=== PATIENT | male | born 1945 | race Two or more races ===

== ENCOUNTER 2016-12-28 21:52 | Inpatient (IN) | payer OTHER ==
[~2016-12-28] VITALS: Ht 165.1 cm; Wt 99.0 kg
[~2016-12-28 21:52] MED LIST: ALBUAER3 IN; ATOR40TA52 PO; CLOP75TA41 PO; ENO40SY SUBCUT; FENO54TA4 PO; FURO20TA3 PO; GABA-497 PO; INSUINJ37 SC; LISI40TA PO; METO25TA62 PO; POTA10TA51 PO; TAMS0.4C36 PO
[2016-12-28 22:32] LABS: Basophils # (auto) 0 uL; Basophils % (auto) 0.3 % (0.0-2.0); CONDITION Y; Eosinophils # (auto) 0.1 uL; Eosinophils % (auto) 0.7 % (0.0-7.0); Hematocrit 47.1 % (41.0-53.0); Hemoglobin 15.6 g/dL (13.5-17.5); Lymphocytes # (auto) 1.7 uL; Lymphocytes % (auto) 11.5 % (10.0-50.0); Mean Corpuscular Hemoglobin 27.1 pg (28.0-32.0); Mean Corpuscular Volume 81.9 fL (80.0-100.0); Mean Platelet Volume 9.3 fL (7.4-10.4); Monocytes # (auto) 0.1 uL; Monocytes % (auto) 0.9 % (0.0-12.0); Neutrophils # (auto) 12.4 uL; Neutrophils % (auto) 86.6 % (37.0-80.0); Platelet Count (auto) 266 10^3/uL (140-450); Red Cell Distribution Width 15.9 % (11.6-16.0); White Blood Cell 14.4 10^3/uL (4.4-10.8)
[2016-12-28 22:44] LABS: Albumin 2.8 g/dL (3.4-5.0); Anion Gap 10 (5-15); Aspartate Aminotransferase 21 U/L (15-37); BUN/Creatinine Ratio 9.9; Blood Urea Nitrogen 14 mg/dL (7-18); Calcium 8.2 mg/dL (8.5-10.1); Carbon Dioxide 24 mmol/L (21-32); Chloride 105 mmol/L (98-107); GFR African American 64 mL/min; GFR Non-African American 53 mL/min; Glucose 171 mg/dL (74-106); Potassium 4.3 mmol/L (3.5-5.1); Sodium 139 mmol/L (136-145)
[2016-12-28 22:50] LABS: Alkaline Phosphatase 89 U/L (45-117); Total Protein 7.5 g/dL (6.4-8.2)
[2016-12-28 22:52] LABS: Lactic Acid w/Reflex 3.6 mmol/L (0.4-2.0)
[2016-12-28] MEDS ORDERED: SODIUM CHLORIDE 0.9% 1,000 ML IV ONE (23:15)
[2016-12-28 23:20] LABS: REFLEX LACTIC ACID YES OR NO YES
[2016-12-29] VITALS (44 sets, daily range): BP systolic 97–128; BP diastolic 37–82
[2016-12-29 01:19] LABS: Allen Test Yes; Blood 02Sat 96.3 % (96-100); Blood COHb 0.6 % (0.5-1.5); Blood MetHb 0.4 % (0.0-1.5); HCO3 18.8 mmol/L (22-26.0); HHb 3.7 % (0.0-5.0); MODE MASK - BIPAP; O2Hb 95.3 % (94.0-97.0); PCO2 35.3 mmHg (35.0-45.0); PCO2(T) 35.3 mmHg (35.0-45.0); PO2 97.6 mmHg (80.0-100.0); PO2(T) 97.6 mmHg (80.0-100.0); Sample Type Arterial; pH 7.344 (7.350-7.450)
[2016-12-29] MEDS ORDERED: IOHEXOL 350 MG/ML 100ML IJ ONE (01:48)
[2016-12-29] MEDS ORDERED: FUROSEMIDE 20 MG/2 ML VIAL IV ONE ×2 (02:15→05:30)
[2016-12-29] MEDS ORDERED: IPRATROPIUM BROM 0.5 MG/2.5ML INH SOL NEB PRN (05:45)
[2016-12-29] MEDS ORDERED: ALBUMIN 25% 50 ML IV ONE (05:45)
[2016-12-29] MEDS ORDERED: MORPHINE SULF INJ 2 MG/ML SYRINGE 1ML IV PRN (05:45)
[2016-12-29] MEDS ORDERED: ACETAMINOPHEN 325 MG TAB PO PRN (05:45)
[2016-12-29] MEDS ORDERED: ALBUTEROL SULF 2.5 MG/0.5ML(0.5%) NEB SOLN NEB PRN (05:45)
[2016-12-29] MEDS ORDERED: ONDANSETRON HCL 4 MG/2 ML VIAL IV PRN (05:45)
[2016-12-29] MEDS ORDERED: DEXTROSE (50%) 50ML SYRG IV PRN (05:45)
[2016-12-29] MEDS ORDERED: NITROGLYCERIN 0.4 MG SL TAB SL PRN (05:45)
[2016-12-29] MEDS ORDERED: HYDROcodone-ACET 5/325MG TAB PO PRN (05:45)
[2016-12-29] MEDS: InsuLIN REG 1unit/0.01ml Soln (100units/ml) SC SCH ×4 (06:00→23:52)
[2016-12-29] MEDS: ACCU-CHEK COMFORT CURVE STRIP VI SCH ×4 (06:00→23:52)
[2016-12-29] MEDS: LEVOFLOXACIN 750MG 150 ML IV SCH (06:28)
[2016-12-29 08:41] LABS: Albumin 2.5 g/dL (3.4-5.0); BUN/Creatinine Ratio 10.1; Bilirubin, Total 1.2 mg/dL (0.2-1.0); Calcium 8.1 mg/dL (8.5-10.1); Magnesium 1.9 mg/dL (1.6-2.6); Potassium 4.5 mmol/L (3.5-5.1); Total Protein 6.3 g/dL (6.4-8.2)
[2016-12-29] MEDS: METOPROLOL SUCCINATE XL 50 MG TAB PO SCH (09:46)
[2016-12-29] MEDS: PANTOPRAZOLE 40 MG TAB PO SCH (09:46)
[2016-12-29] MEDS: ASPirin 81 mg TAB PO SCH (09:46)
[2016-12-29] MEDS: CLOPIDOGREL BISULFATE 75 MG TAB PO SCH (09:46)
[2016-12-29] MEDS ORDERED: PANTOPRAZOLE SODIUM 40 MG/10 ML VIAL IV SCH (10:00)
[2016-12-29] MEDS ORDERED: METOPROLOL SUCCINATE XL 50 MG TAB PO SCH (10:00)
[2016-12-29] MEDS ORDERED: ENOXAPARIN SOD 40 MG/0.4 ML SYRINGE SC SCH (10:00)
[2016-12-29] MEDS ORDERED: ENOXAPARIN SOD 30 MG/0.3 ML SYRINGE SC SCH (10:00)
[2016-12-29 10:11] LABS: CONDITION Y; Mean Corpuscular Hemoglobin 27.3 pg (28.0-32.0); Mean Corpuscular Hgb Conc. 33.3 g/dL (32.0-36.0); Mean Corpuscular Volume 81.8 fL (80.0-100.0); Mean Platelet Volume 8.7 fL (7.4-10.4); Platelet Count (auto) 213 10^3/uL (140-450); Red Cell Distribution Width 15.8 % (11.6-16.0); SUSPECT SEE PRINTOUT
[2016-12-29 10:15] LABS: Metamyelocytes % 0; Myelocytes % 0; Promyelocytes % 0; Reactive Lymphocytes 0
[2016-12-29 10:34] LABS: Lactic Acid w/Reflex 4.2 mmol/L (0.4-2.0)
[2016-12-29 11:01] LABS: REFLEX LACTIC ACID YES OR NO YES
[2016-12-29] MEDS: MAGNESIUM SULFATE 1GM/100ML 100 ML IV SCH ×2 (13:00→14:00)
[2016-12-29 15:12] LABS: Platelet Estimate Adequate
[2016-12-29] MEDS ORDERED: CYANOCOBALAMIN (B-12) 1000 MCG/1 ML VIAL SUBCUT ONE (17:45)
[2016-12-29] MEDS ORDERED: MAGNESIUM SULFATE 1GM/100ML 100 ML IV ONE (17:51)
[2016-12-29] MEDS: FUROSEMIDE 20 MG TAB PO SCH (18:24)
[2016-12-30] VITALS: BP 135/83
[2016-12-30 03:57] LABS: Basophils # (auto) 0 uL; CONDITION Y; Eosinophils # (auto) 0.3 uL; Eosinophils % (auto) 1.4 % (0.0-7.0); Hematocrit 41.9 % (41.0-53.0); Hemoglobin 14.1 g/dL (13.5-17.5); Lymphocytes # (auto) 1.5 uL; Lymphocytes % (auto) 6.9 % (10.0-50.0); Mean Corpuscular Hemoglobin 27.6 pg (28.0-32.0); Mean Corpuscular Hgb Conc. 33.6 g/dL (32.0-36.0); Mean Platelet Volume 9.1 fL (7.4-10.4); Monocytes # (auto) 0.6 uL; Neutrophils # (auto) 18.7 uL; Neutrophils % (auto) 88.7 % (37.0-80.0); Platelet Count (auto) 237 10^3/uL (140-450); Red Cell Distribution Width 15.9 % (11.6-16.0); White Blood Cell 21.1 10^3/uL (4.4-10.8)
[2016-12-30 04:00] VITALS: BP 127/74
[2016-12-30 04:10] LABS: Albumin 2.4 g/dL (3.4-5.0); Calcium 8.1 mg/dL (8.5-10.1); Magnesium 2.2 mg/dL (1.6-2.6); Potassium 3.9 mmol/L (3.5-5.1)
[2016-12-30 04:14] LABS: BUN/Creatinine Ratio 13.7; Bilirubin, Total 0.9 mg/dL (0.2-1.0); Total Protein 6.6 g/dL (6.4-8.2)
[2016-12-30] MEDS: ACCU-CHEK COMFORT CURVE STRIP VI SCH (06:34)
[2016-12-30] MEDS: LEVOFLOXACIN 750MG 150 ML IV SCH (06:34)
[2016-12-30] MEDS: FUROSEMIDE 20 MG TAB PO SCH (06:34)
[2016-12-30] MEDS: InsuLIN REG 1unit/0.01ml Soln (100units/ml) SC SCH (06:35)
[2016-12-30 08:00] VITALS: BP 126/74
[2016-12-30] MEDS ORDERED: ENOXAPARIN SOD 40 MG/0.4 ML SYRINGE SC SCH (10:00)
[2016-12-30] MEDS: PANTOPRAZOLE 40 MG TAB PO SCH (10:16)
[2016-12-30] MEDS: CLOPIDOGREL BISULFATE 75 MG TAB PO SCH (10:16)
[2016-12-30] MEDS: ASPirin 81 mg TAB PO SCH (10:16)
[2016-12-30] MEDS: METOPROLOL SUCCINATE XL 50 MG TAB PO SCH (10:17)
[2016-12-30 12:00] VITALS: BP 137/66
[2016-12-30 14:44] VITALS: BP 137/66
[2017-01-01] MEDS ORDERED: MECL12.554 PO (07:13)
[2017-01-01] MEDS ORDERED: DULO60CA PO (07:13)
[2017-01-01] MEDS ORDERED: GABA400C PO (07:13)
[2017-01-02] MEDS ORDERED: INSU70IN3 SC (13:22)
== END 2016-12-30 19:25 | disposition home or self-care (01) | DRG 871 ==
LOC: EDBD 21:52 → ER 21:54 → TELE 21:55 → ICU WEST 12-29 08:25
PROVIDERS: ADMIT Nurse Practitioner; ATTEND Family Medicine
PROC: 5A09357 Assistance with Respiratory Ventilation, Less than 24 Consecutive Hours, Continuous Positive Airway Pressure (ICD-10-PCS; principal; 2016-12-28)
DX: A41.9 Sepsis, unspecified organism (principal); J18.1 Lobar pneumonia, unspecified organism; I50.33 Acute on chronic diastolic (congestive) heart failure; J44.1 Chronic obstructive pulmonary disease with (acute) exacerbation; I13.0 Hypertensive heart and chronic kidney disease with heart failure and stage 1 through stage 4 chronic kidney disease, or unspecified chronic kidney disease; E87.1 Hypo-osmolality and hyponatremia; J44.0 Chronic obstructive pulmonary disease with (acute) lower respiratory infection; N17.9 Acute kidney failure, unspecified; I25.10 Atherosclerotic heart disease of native coronary artery without angina pectoris; N18.3 Chronic kidney disease, stage 3 (moderate); E78.5 Hyperlipidemia, unspecified; E11.22 Type 2 diabetes mellitus with diabetic chronic kidney disease; I73.9 Peripheral vascular disease, unspecified; E66.01 Morbid (severe) obesity due to excess calories; K80.20 Calculus of gallbladder without cholecystitis without obstruction; Z82.49 Family history of ischemic heart disease and other diseases of the circulatory system; Z87.891 Personal history of nicotine dependence; Z95.1 Presence of aortocoronary bypass graft; Z86.73 Personal history of transient ischemic attack (TIA), and cerebral infarction without residual deficits; I25.2 Old myocardial infarction; Z68.36 Body mass index [BMI] 36.0-36.9, adult; Z80.49 Family history of malignant neoplasm of other genital organs; Z79.4 Long term (current) use of insulin; Z79.02 Long term (current) use of antithrombotics/antiplatelets
CPT/HCPCS: 36415; 36600; 71010; 71275; 76775; 80053; 80061; 82607; 82805; 82962; 83605; 83735; 83880; 84484; 85007; 85025; 85027; 85379; 87040; 87081; 93005; 93306; 93923; 93970; 94660; 96361; 96374; 96376; J1815; J1956

== ENCOUNTER 2017-01-14 13:07 | Inpatient (IN) | payer OTHER ==
[~2017-01-14] VITALS: Ht 162.6 cm; Wt 97.7 kg
[~2017-01-14 13:07] MED LIST changes: +DULO60CA PO; +GABA400C PO; +INSU70IN3 SC; -INSUINJ37 SC; +MECL12.554 PO
[2017-01-14 13:57] LABS: Basophils # (auto) 0 uL; Basophils % (auto) 0.1 % (0.0-2.0); CONDITION Y; Eosinophils # (auto) 0.4 uL; Eosinophils % (auto) 2.4 % (0.0-7.0); Hematocrit 42.4 % (41.0-53.0); Hemoglobin 13.9 g/dL (13.5-17.5); Lymphocytes # (auto) 1.8 uL; Mean Corpuscular Hemoglobin 27.1 pg (28.0-32.0); Mean Corpuscular Hgb Conc. 32.9 g/dL (32.0-36.0); Mean Corpuscular Volume 82.5 fL (80.0-100.0); Mean Platelet Volume 8.9 fL (7.4-10.4); Monocytes # (auto) 1.3 uL; Monocytes % (auto) 7.4 % (0.0-12.0); Neutrophils # (auto) 14.1 uL; Neutrophils % (auto) 80.1 % (37.0-80.0); Platelet Count (auto) 271 10^3/uL (140-450); Red Cell Distribution Width 16.1 % (11.6-16.0); White Blood Cell 17.6 10^3/uL (4.4-10.8)
[2017-01-14 14:14] LABS: Anion Gap 6 (5-15); Aspartate Aminotransferase 10 U/L (15-37); Blood Urea Nitrogen 28 mg/dL (7-18); Carbon Dioxide 29 mmol/L (21-32); Chloride 107 mmol/L (98-107); GFR African American 75 mL/min; GFR Non-African American 62 mL/min; Glucose 224 mg/dL (74-106); Potassium 4.1 mmol/L (3.5-5.1); Sodium 142 mmol/L (136-145)
[2017-01-14 14:19] LABS: Alkaline Phosphatase 109 U/L (45-117); Bilirubin, Total 0.7 mg/dL (0.2-1.0); Total Protein 5.7 g/dL (6.4-8.2)
[2017-01-14] MEDS ORDERED: cefTRIAXone 1GM/50ML D5W 50 ML IV ONE (16:00)
[2017-01-14 17:01] LABS: B-Type Natriuretic Peptide 175.96 pg/mL (0-100)
[2017-01-14 17:17] LABS: Temperature: 23.3 C (20.0-25.0)
[2017-01-14] MEDS ORDERED: TEMAZEPAM 15 MG CAP PO PRN (17:30)
[2017-01-14] MEDS ORDERED: MORPHINE SULFATE 4 MG/ML SYRG IV PRN (17:30)
[2017-01-14] MEDS ORDERED: LACTULOSE 20Gm/30ML SOLN PO PRN (17:30)
[2017-01-14] MEDS ORDERED: PROMETHAZINE HCL 25 MG/ML 1ML IV PRN (17:30)
[2017-01-14] MEDS ORDERED: VANCOMYCIN PER PHARMACY 0 MG IV SCH (17:30)
[2017-01-14] MEDS ORDERED: LORazepam 0.5 MG TAB PO PRN (17:30)
[2017-01-14] MEDS ORDERED: NITROGLYCERIN 0.4 MG SL TAB SL PRN (17:30)
[2017-01-14] MEDS ORDERED: MORPHINE SULF INJ 2 MG/ML SYRINGE 1ML IV PRN (17:30)
[2017-01-14] MEDS ORDERED: ACETAMINOPHEN 500 MG TAB PO PRN (17:30)
[2017-01-14] MEDS ORDERED: ALBUTEROL SULF 2.5 MG/0.5ML(0.5%) NEB SOLN NEB PRN (17:30)
[2017-01-14] MEDS ORDERED: HYDROcodone-ACET 5/325MG TAB PO PRN (17:30)
[2017-01-14] MEDS ORDERED: DEXTROSE (50%) 50ML SYRG IV PRN (17:30)
[2017-01-14] MEDS ORDERED: PIPERACILLIN-TAZOB 3.375GM 100 ML IV SCH (18:00)
[2017-01-14] MEDS ORDERED: GABAPENTIN 400 MG CAP PO SCH (18:30)
[2017-01-14] MEDS ORDERED: ASPirin 81 mg TAB PO ONE (18:30)
[2017-01-14] MEDS ORDERED: ENOXAPARIN SOD 40 MG/0.4 ML SYRINGE SC ONE (18:45)
[2017-01-14] MEDS ORDERED: VANCOMYCIN 1,500 MG in D5W 5% 250 ML IV ONE (19:15)
[2017-01-14] MEDS: IPRATROPIUM BROM 0.5 MG/2.5ML INH SOL NEB SCH (19:20)
[2017-01-14] MEDS: ALBUTEROL SULF 2.5 MG/0.5ML(0.5%) NEB SOLN NEB SCH (19:20)
[2017-01-14 19:26] LABS: INR 1.05 (0.9-1.15); Partial Thromboplastin Time 32.6 sec (22.64-33.71); Prothrombin Time 11.4 sec (9.37-12.3)
[2017-01-14] MEDS ORDERED: LORazepam 2MG/ML-1ML VIAL IV PRN (19:45)
[2017-01-14] MEDS: TAMSULOSIN HYDROCHLORIDE 0.4 MG CAP PO SCH (20:27)
[2017-01-14 21:36] VITALS: BP 114/79
[2017-01-14] MEDS ORDERED: ATORVASTATIN 20 MG TAB PO SCH (22:00)
[2017-01-14] MEDS: SODIUM CHLOR 0.9% PF (SALINE LOCK) 10ML VIAL IV SCH (22:00)
[2017-01-14] MEDS: GABAPENTIN 400 MG CAP PO SCH ×2 (22:00→22:38)
[2017-01-14] MEDS: ACCU-CHEK COMFORT CURVE STRIP VI SCH (22:36)
[2017-01-14] MEDS: ATORVASTATIN 20 MG TAB PO SCH (22:37)
[2017-01-14] MEDS: InsuLIN REG 1unit/0.01ml Soln (100units/ml) SC SCH (22:37)
[2017-01-15] MEDS: IPRATROPIUM BROM 0.5 MG/2.5ML INH SOL NEB SCH ×5 (00:27→23:57)
[2017-01-15] MEDS: ALBUTEROL SULF 2.5 MG/0.5ML(0.5%) NEB SOLN NEB SCH ×5 (00:27→23:57)
[2017-01-15] MEDS: PIPERACILLIN-TAZOB 3.375GM 100 ML IV SCH ×3 (04:00→17:15)
[2017-01-15] MEDS: SODIUM CHLOR 0.9% PF (SALINE LOCK) 10ML VIAL IV SCH ×3 (06:30→22:47)
[2017-01-15] MEDS: GABAPENTIN 400 MG CAP PO SCH ×4 (06:30→22:46)
[2017-01-15] MEDS: ACCU-CHEK COMFORT CURVE STRIP VI SCH ×4 (06:46→22:39)
[2017-01-15 06:51] LABS: Basophils # (auto) 0 uL; Basophils % (auto) 0.2 % (0.0-2.0); CONDITION Y; Eosinophils # (auto) 0.3 uL; Eosinophils % (auto) 2.2 % (0.0-7.0); Lymphocytes # (auto) 1.7 uL; Lymphocytes % (auto) 11.1 % (10.0-50.0); Mean Corpuscular Hemoglobin 27.3 pg (28.0-32.0); Mean Corpuscular Hgb Conc. 33.4 g/dL (32.0-36.0); Mean Corpuscular Volume 81.7 fL (80.0-100.0); Mean Platelet Volume 8.7 fL (7.4-10.4); Monocytes # (auto) 0.8 uL; Monocytes % (auto) 5.1 % (0.0-12.0); Neutrophils # (auto) 12.4 uL; Neutrophils % (auto) 81.4 % (37.0-80.0); Platelet Count (auto) 225 10^3/uL (140-450); White Blood Cell 15.2 10^3/uL (4.4-10.8)
[2017-01-15] MEDS: InsuLIN REG 1unit/0.01ml Soln (100units/ml) SC SCH ×4 (07:01→22:46)
[2017-01-15 07:20] LABS: B-Type Natriuretic Peptide 121.55 pg/mL (0-100)
[2017-01-15 07:23] LABS: Albumin 1.8 g/dL (3.4-5.0); BUN/Creatinine Ratio 27.2; Bilirubin, Total 0.8 mg/dL (0.2-1.0); Calcium 7.8 mg/dL (8.5-10.1); Total Protein 5.5 g/dL (6.4-8.2)
[2017-01-15 07:41] LABS: Temperature: 22.2 C (20.0-25.0)
[2017-01-15] MEDS: NITROGLYCERIN 0.2MG/HR TOPICAL PATCH TD SCH (09:37)
[2017-01-15] MEDS ORDERED: LISINOPRIL 10 MG TAB PO SCH (10:00)
[2017-01-15] MEDS: FENOFIBRATE 54 MG PO SCH (10:00)
[2017-01-15] MEDS ORDERED: METOPROLOL SUCCINATE XL 50 MG TAB PO SCH (10:00)
[2017-01-15] MEDS ORDERED: AZITHROMYCIN 500MG/D5W 250ML 250 ML IV SCH ×2 (10:00→18:00)
[2017-01-15] MEDS ORDERED: FUROSEMIDE 40 MG/4 ML VIAL IV SCH (10:00)
[2017-01-15] MEDS ORDERED: ASPirin 81 mg TAB PO SCH (10:00)
[2017-01-15] MEDS: POTASSIUM CHL 20 Meq TABLET PO SCH (10:24)
[2017-01-15] MEDS: PANTOPRAZOLE 40 MG TAB PO SCH (10:24)
[2017-01-15] MEDS: CLOPIDOGREL BISULFATE 75 MG TAB PO SCH (10:24)
[2017-01-15] MEDS: DULoxetine HCL 30 MG CAP PO SCH (10:24)
[2017-01-15] MEDS: ENOXAPARIN SOD 40 MG/0.4 ML SYRINGE SC SCH (10:25)
[2017-01-15] MEDS ORDERED: SODIUM CHLORIDE 0.9% 250 ML IV ONE (11:30)
[2017-01-15] MEDS: VANCOMYCIN 1,250 MG in D5W 5% 250 ML IV SCH (13:19)
[2017-01-15] MEDS: TAMSULOSIN HYDROCHLORIDE 0.4 MG CAP PO SCH (18:44)
[2017-01-15] MEDS: ATORVASTATIN 20 MG TAB PO SCH (22:42)
[2017-01-16] MEDS: VANCOMYCIN 1,250 MG in D5W 5% 250 ML IV SCH (00:19)
[2017-01-16] MEDS: PIPERACILLIN-TAZOB 3.375GM 100 ML IV SCH ×3 (02:07→13:43)
[2017-01-16 04:05] VITALS: BP 110/64
[2017-01-16 04:41] VITALS: BP 110/64
[2017-01-16 06:09] LABS: Basophils # (auto) 0 uL; Basophils % (auto) 0.2 % (0.0-2.0); CONDITION Y; Eosinophils # (auto) 0.3 uL; Eosinophils % (auto) 1.7 % (0.0-7.0); Hematocrit 37.7 % (41.0-53.0); Hemoglobin 12.5 g/dL (13.5-17.5); Lymphocytes # (auto) 1.3 uL; Lymphocytes % (auto) 8.1 % (10.0-50.0); Mean Corpuscular Hemoglobin 27.1 pg (28.0-32.0); Mean Corpuscular Hgb Conc. 33.2 g/dL (32.0-36.0); Mean Corpuscular Volume 81.6 fL (80.0-100.0); Monocytes # (auto) 0.9 uL; Monocytes % (auto) 5.7 % (0.0-12.0); Neutrophils # (auto) 13.1 uL; Neutrophils % (auto) 84.3 % (37.0-80.0); Platelet Count (auto) 224 10^3/uL (140-450); Red Cell Distribution Width 16.4 % (11.6-16.0); White Blood Cell 15.6 10^3/uL (4.4-10.8)
[2017-01-16] MEDS: IPRATROPIUM BROM 0.5 MG/2.5ML INH SOL NEB SCH ×2 (06:17→12:07)
[2017-01-16] MEDS: ALBUTEROL SULF 2.5 MG/0.5ML(0.5%) NEB SOLN NEB SCH ×2 (06:18→12:07)
[2017-01-16 06:22] LABS: BUN/Creatinine Ratio 24.4; Calcium 7.4 mg/dL (8.5-10.1); Magnesium 2.5 mg/dL (1.6-2.6); Potassium 3.8 mmol/L (3.5-5.1)
[2017-01-16] MEDS: ACCU-CHEK COMFORT CURVE STRIP VI SCH ×2 (06:34→12:05)
[2017-01-16 06:35] LABS: INR 1.05 (0.9-1.15); Partial Thromboplastin Time 37.1 sec (22.64-33.71); Prothrombin Time 11.4 sec (9.37-12.3)
[2017-01-16] MEDS: InsuLIN REG 1unit/0.01ml Soln (100units/ml) SC SCH ×2 (06:39→12:27)
[2017-01-16] MEDS: GABAPENTIN 400 MG CAP PO SCH ×2 (06:39→13:44)
[2017-01-16] MEDS: SODIUM CHLOR 0.9% PF (SALINE LOCK) 10ML VIAL IV SCH ×2 (06:39→13:43)
[2017-01-16 07:30] VITALS: BP 92/62
[2017-01-16] MEDS: NITROGLYCERIN 0.2MG/HR TOPICAL PATCH TD SCH (10:00)
[2017-01-16] MEDS: FENOFIBRATE 54 MG PO SCH (10:00)
[2017-01-16] MEDS: DULoxetine HCL 30 MG CAP PO SCH (10:12)
[2017-01-16] MEDS: CLOPIDOGREL BISULFATE 75 MG TAB PO SCH (10:12)
[2017-01-16] MEDS: POTASSIUM CHL 20 Meq TABLET PO SCH (10:12)
[2017-01-16] MEDS: PANTOPRAZOLE 40 MG TAB PO SCH (10:12)
[2017-01-16] MEDS: ENOXAPARIN SOD 40 MG/0.4 ML SYRINGE SC SCH (10:12)
[2017-01-16 12:00] VITALS: BP 93/52
[2017-01-16 14:55] VITALS: BP 83/45
[2017-01-16 15:43] VITALS: BP 99/62
== END 2017-01-16 16:28 | DRG 871 ==
LOC: EDBD 13:07 → ER 13:16 → TELE 13:17 → DOU IN ICU 01-16 03:50 → TELE-EAST 01-16 14:12
PROVIDERS: ADMIT Internal Medicine; ATTEND Internal Medicine Geriatric Medicine
DX: A41.9 Sepsis, unspecified organism (principal); J18.1 Lobar pneumonia, unspecified organism; G93.41 Metabolic encephalopathy; I11.0 Hypertensive heart disease with heart failure; I50.42 Chronic combined systolic (congestive) and diastolic (congestive) heart failure; E11.51 Type 2 diabetes mellitus with diabetic peripheral angiopathy without gangrene; J44.0 Chronic obstructive pulmonary disease with (acute) lower respiratory infection; W19.XXXA Unspecified fall, initial encounter; E11.65 Type 2 diabetes mellitus with hyperglycemia; E78.5 Hyperlipidemia, unspecified; E86.0 Dehydration; F17.210 Nicotine dependence, cigarettes, uncomplicated; I25.10 Atherosclerotic heart disease of native coronary artery without angina pectoris; I25.5 Ischemic cardiomyopathy; N40.1 Benign prostatic hyperplasia with lower urinary tract symptoms; R33.8 Other retention of urine; Y92.009 Unspecified place in unspecified non-institutional (private) residence as the place of occurrence of the external cause; Z79.82 Long term (current) use of aspirin; Z82.49 Family history of ischemic heart disease and other diseases of the circulatory system; Z85.89 Personal history of malignant neoplasm of other organs and systems; Z86.73 Personal history of transient ischemic attack (TIA), and cerebral infarction without residual deficits; Z95.1 Presence of aortocoronary bypass graft; Z90.49 Acquired absence of other specified parts of digestive tract; Z79.02 Long term (current) use of antithrombotics/antiplatelets
CPT/HCPCS: 36415; 70450; 70551; 71020; 80048; 80053; 80061; 80202; 80320; 82550; 82607; 82746; 82962; 83036; 83605; 83735; 83880; 84443; 84484; 85025; 85610; 85730; 87040; 87081; 93005; 93886; 94640; 95819; 96372; 96374; 96375; J0696; J1815; J2543; J7060